=== PATIENT | male | born 1980 | race Caucasian/White ===

== ENCOUNTER 2018-04-15 15:45 | Emergency (ER) | payer MEDICAID ==
[~2018-04-15] VITALS: Ht 167.6 cm; Wt 64.8 kg
[2018-04-15] MEDS ORDERED: CLIN300C85 PO (18:39)
== END 2018-04-15 18:46 | disposition home or self-care (01) ==
LOC: ER 15:45
DX: B95.7 Other staphylococcus as the cause of diseases classified elsewhere (principal); L98.8 Other specified disorders of the skin and subcutaneous tissue; F15.90 Other stimulant use, unspecified, uncomplicated; Z59.0 Homelessness; Z56.0 Unemployment, unspecified
CPT/HCPCS: 99283

== ENCOUNTER 2018-05-02 21:04 | Emergency (ER) | payer MEDICAID ==
[~2018-05-02] VITALS: Ht 167.6 cm; Wt 65.0 kg
[~2018-05-02 21:04] MED LIST: CLIN300C85 PO
[2018-05-02 21:16] VITALS: BP 150/82
[2018-05-02] MEDS ORDERED: penicillin G benzathine 1.2 million unit/2ml syringe IM ONE (21:35)
[2018-05-02] MEDS ORDERED: SULF1TAB49 PO (21:36)
== END 2018-05-02 22:01 | disposition home or self-care (01) ==
LOC: ER 21:04
DX: N49.2 Inflammatory disorders of scrotum (principal); F15.90 Other stimulant use, unspecified, uncomplicated; Z59.0 Homelessness; Z56.0 Unemployment, unspecified; Z79.2 Long term (current) use of antibiotics
CPT/HCPCS: 96372; 99283; J0561